=== PATIENT | female | born 1990 | race Two or more races ===

== ENCOUNTER 2021-01-29 14:04 | Emergency (ER) | payer MEDICAID ==
[~2021-01-29] VITALS: Ht 160 cm; Wt 99.8 kg
[2021-01-29 14:08] VITALS: BP 130/90
== END 2021-01-29 17:02 | disposition home or self-care (01) ==
LOC: ER 14:04
DX: S93.401A Sprain of unspecified ligament of right ankle, initial encounter (principal)
CPT/HCPCS: 73630

== ENCOUNTER 2023-01-23 17:08 | Emergency (ER) | payer MEDICAID ==
[~2023-01-23] VITALS: Ht 160 cm; Wt 101.7 kg
[2023-01-23 20:35] VITALS: BP 131/90
[2023-01-23] MEDS ORDERED: AMOX-277 PO (20:35)
[2023-01-23] MEDS ORDERED: IBUP800T26 PO (20:35)
[2023-01-23] MEDS ORDERED: KETOROLAC TROMETH 30 MG/ML 1ML VIAL IM ONE (20:45)
== END 2023-01-23 21:18 | disposition home or self-care (01) ==
LOC: ER 17:08
DX: H66.92 Otitis media, unspecified, left ear (principal); E11.9 Type 2 diabetes mellitus without complications
CPT/HCPCS: 96372; 99283; J1885